=== PATIENT | female | born 1940 | race Caucasian/White ===

== ENCOUNTER 2020-03-04 10:25 | Outpatient (CLI) | payer OTHER, SELFPAY | END 2020-03-04 22:07 | disposition home or self-care (01) | LOC: MLB 10:25 → EDSTATUS 03-12 07:30 | PROVIDERS: ATTEND Urology | DX: Z01.812 Encounter for preprocedural laboratory examination (principal); D49.4 Neoplasm of unspecified behavior of bladder; Z20.828 Contact with and (suspected) exposure to other viral communicable diseases | CPT/HCPCS: U0003 ==